=== PATIENT | male | born 1935 | race African-American/Black ===

== ENCOUNTER 2018-02-10 03:52 | Emergency (ER) | payer OTHER ==
[~2018-02-10] VITALS: Ht 167.6 cm; Wt 68.0 kg
[2018-02-10] MEDS ORDERED: ELIQUIS5 MG (04:22)
[2018-02-10] MEDS ORDERED: CARVEDILOL3.125 MG (04:22)
[2018-02-10] MEDS ORDERED: QUINAPRIL HCL20 MG (04:23)
[2018-02-10] MEDS ORDERED: NAMENDA XR7 MG (04:23)
[2018-02-10] MEDS ORDERED: SIMVASTATIN20 MG (04:24)
[2018-02-10] MEDS ORDERED: TAMS0.4C (04:24)
[2018-02-10] MEDS ORDERED: PROFERRIN-FORT1 EACH (04:25)
[2018-02-10] MEDS ORDERED: FINASTERIDE5 MG (04:25)
[2018-02-10] MEDS ORDERED: PNEU16DI2 (04:26)
[2018-02-10] MEDS ORDERED: RIVASTIGMINE6 MG (04:26)
[2018-02-10] MEDS ORDERED: PEPCID40 MG PO (07:19)
[2018-02-10] MEDS ORDERED: ZOFRAN ODT4 MG PO (07:19)
== END 2018-02-10 07:38 | disposition home or self-care (01) ==
LOC: ER 03:52
DX: R42 Dizziness and giddiness (principal)

== ENCOUNTER 2018-03-09 06:43 | Emergency (ER) | payer OTHER ==
[~2018-03-09] VITALS: Ht 162.6 cm; Wt 65.8 kg
[~2018-03-09 06:43] MED LIST: CARVEDILOL3.125 MG; ELIQUIS5 MG; FINASTERIDE5 MG; NAMENDA XR7 MG; PEPCID40 MG PO; PNEU16DI2; PROFERRIN-FORT1 EACH; QUINAPRIL HCL20 MG; RIVASTIGMINE6 MG; SIMVASTATIN20 MG; TAMS0.4C; ZOFRAN ODT4 MG PO
== END 2018-03-09 20:37 | disposition home or self-care (01) ==
LOC: ER 06:43
DX: K57.90 Diverticulosis of intestine, part unspecified, without perforation or abscess without bleeding (principal); N20.0 Calculus of kidney

== ENCOUNTER 2018-05-12 05:36 | Inpatient (IN) | payer OTHER ==
[~2018-05-12] VITALS: Ht 165.1 cm; Wt 63.5 kg
[2018-05-12] MEDS ORDERED: PNEU16DI2 (05:58)
[2018-05-12] MEDS ORDERED: NAMENDA XR14 MG (05:58)
--- NOTE | 2018-05-12 05:58 | NUR ---
SE RECIBE PTE ALERTA Y ORIENTADA POR SOFIA. PTE REFIERE PRESENTAR DOLOR EN AREA DEL HIPOGASTRIO DESDE LA MADRUGADA.
--- NOTE | 2018-05-12 06:49 | NUR ---
SE RECIBE MASCULINO ALERTA Y ORIENTADO POR SOFIA ESFERAS, EN ANGELICA. SE DOMINIQUE MUESTRAS DE LABORATORIO ORDENADAS. SE CANALIZA CON AREA DE VENOPUNCION TA DE EDEMA O ENROJECIMIENTO. SE ADMINISTRAN MEDICAMENTOS ORDENADOS. SE MANTIENE EN OBSERVACION POR CAMBIOS.
[2018-07-05] MEDS ORDERED: XOPENEX0.63 MG/3 IH (11:45)
[2018-07-05] MEDS ORDERED: ELIQUIS2.5 MG PO (11:46)
[2018-07-05] MEDS ORDERED: SIMVASTATIN20 MG PO (11:47)
[2018-07-05] MEDS ORDERED: RISPERIDONE0.5 MG PO (11:47)
[2018-07-05] MEDS ORDERED: PANTOPRAZOLE SO40 MG PO (11:48)
[2018-07-05] MEDS ORDERED: FUROSEMIDE20 MG PO (11:48)
[2018-07-05] MEDS ORDERED: ARTIFICIAL TEAR15 M8 TOP (11:48)
[2018-07-05] MEDS ORDERED: DOCUSATE SODIU100 MG PO (11:49)
[2018-07-05] MEDS ORDERED: FAMOTIDINE20 MG PO (11:49)
[2018-07-05] MEDS ORDERED: PROSCAR5 MG PO (11:50)
[2018-07-05] MEDS ORDERED: POM (MEDICAMENTO EN PO (11:52)
[2018-07-05] MEDS ORDERED: Coreg 6.25MG TABLET PO (11:52)
[2018-07-05] MEDS ORDERED: Intestinex CAP PO (11:52)
== END 2018-07-05 14:38 | DRG 391 ==
LOC: ER 05:36 → MEDI 17:23 → MEDJ 06-15 20:47
PROVIDERS: ADMIT Internal Medicine
PROC: BW21ZZZ Computerized Tomography (CT Scan) of Abdomen and Pelvis (ICD-10-PCS; 2018-05-12)
PROC: B246ZZZ Ultrasonography of Right and Left Heart (ICD-10-PCS; 2018-05-12)
PROC: BW21ZZZ Computerized Tomography (CT Scan) of Abdomen and Pelvis (ICD-10-PCS; 2018-05-19)
PROC: BW28ZZZ Computerized Tomography (CT Scan) of Head (ICD-10-PCS; 2018-05-19)
PROC: 0W9F30Z Drainage of Abdominal Wall with Drainage Device, Percutaneous Approach (ICD-10-PCS; principal; 2018-05-20)
PROC: BW21ZZZ Computerized Tomography (CT Scan) of Abdomen and Pelvis (ICD-10-PCS; 2018-05-27)
PROC: 05H533Z Insertion of Infusion Device into Right Subclavian Vein, Percutaneous Approach (ICD-10-PCS; 2018-06-02)
PROC: 3E0F7GC Introduction of Other Therapeutic Substance into Respiratory Tract, Via Natural or Artificial Opening (ICD-10-PCS; 2018-06-03)
PROC: 4A12X4Z Monitoring of Cardiac Electrical Activity, External Approach (ICD-10-PCS; 2018-06-03)
PROC: 4A033R1 Measurement of Arterial Saturation, Peripheral, Percutaneous Approach (ICD-10-PCS; 2018-06-03)
PROC: BB24ZZZ Computerized Tomography (CT Scan) of Bilateral Lungs (ICD-10-PCS; 2018-06-03)
PROC: BW21ZZZ Computerized Tomography (CT Scan) of Abdomen and Pelvis (ICD-10-PCS; 2018-06-06)
PROC: B246ZZZ Ultrasonography of Right and Left Heart (ICD-10-PCS; 2018-06-07)
PROC: 0W9F30Z Drainage of Abdominal Wall with Drainage Device, Percutaneous Approach (ICD-10-PCS; 2018-06-12)
PROC: 8E0ZXY6 Isolation (ICD-10-PCS; 2018-06-15)
PROC: BW21ZZZ Computerized Tomography (CT Scan) of Abdomen and Pelvis (ICD-10-PCS; 2018-06-25)
PROC: BW21Y0Z Computerized Tomography (CT Scan) of Abdomen and Pelvis using Other Contrast, Unenhanced and Enhanced (ICD-10-PCS; 2018-06-25)
DX: K57.20 Diverticulitis of large intestine with perforation and abscess without bleeding (principal); I50.21 Acute systolic (congestive) heart failure; J90 Pleural effusion, not elsewhere classified; D68.8 Other specified coagulation defects; L89.322 Pressure ulcer of left buttock, stage 2; I11.0 Hypertensive heart disease with heart failure; N40.1 Benign prostatic hyperplasia with lower urinary tract symptoms; I48.0 Paroxysmal atrial fibrillation; Z95.0 Presence of cardiac pacemaker; I25.10 Atherosclerotic heart disease of native coronary artery without angina pectoris; R33.8 Other retention of urine; I95.89 Other hypotension; B96.29 Other Escherichia coli [E. coli] as the cause of diseases classified elsewhere

== ENCOUNTER 2018-07-16 18:25 | Emergency (ER) | payer OTHER ==
[~2018-07-16] VITALS: Ht 167.6 cm; Wt 59.9 kg
[~2018-07-16 18:25] MED LIST changes: +ARTIFICIAL TEAR15 M8 TOP; +Coreg 6.25MG TABLET PO; +DOCUSATE SODIU100 MG PO; +ELIQUIS2.5 MG PO; +FAMOTIDINE20 MG PO; +FUROSEMIDE20 MG PO; +Intestinex CAP PO; +NAMENDA XR14 MG; +PANTOPRAZOLE SO40 MG PO; +POM (MEDICAMENTO EN PO; +PROSCAR5 MG PO; +RISPERIDONE0.5 MG PO; +SIMVASTATIN20 MG PO; +XOPENEX0.63 MG/3 IH
[2018-07-16] MEDS ORDERED: TAMS0.4C (18:45)
== END 2018-07-16 22:19 | disposition home or self-care (01) ==
LOC: ER 18:25
DX: T85.598A Other mechanical complication of other gastrointestinal prosthetic devices, implants and grafts, initial encounter (principal); R10.32 Left lower quadrant pain

== ENCOUNTER 2018-07-20 08:05 | Inpatient (IN) | payer OTHER ==
[~2018-07-20] VITALS: Ht 167.6 cm; Wt 70.8 kg
[2018-07-21] MEDS ORDERED: INTESTINEX680 M1 PO (08:04)
[2018-07-21] MEDS ORDERED: CARVEDILOL6.25 MG PO (08:22)
== END 2018-07-24 22:21 | DRG 392 ==
LOC: ER 08:05 → SEC-K 10:58 → MEDJ 10:58 → SURG 07-22 13:09
PROVIDERS: ADMIT Internal Medicine
PROC: 0H97X0Z Drainage of Abdomen Skin with Drainage Device, External Approach (ICD-10-PCS; principal; 2018-07-21)
DX: K31.6 Fistula of stomach and duodenum (principal); T81.83XA Persistent postprocedural fistula, initial encounter; K57.20 Diverticulitis of large intestine with perforation and abscess without bleeding; J90 Pleural effusion, not elsewhere classified; L02.211 Cutaneous abscess of abdominal wall; N40.0 Benign prostatic hyperplasia without lower urinary tract symptoms; Z95.0 Presence of cardiac pacemaker; I48.2 Chronic atrial fibrillation; Z79.01 Long term (current) use of anticoagulants; I25.10 Atherosclerotic heart disease of native coronary artery without angina pectoris; B96.29 Other Escherichia coli [E. coli] as the cause of diseases classified elsewhere

== ENCOUNTER 2018-08-05 19:27 | Emergency (ER) | payer OTHER ==
[~2018-08-05] VITALS: Ht 172.7 cm; Wt 61.2 kg
[~2018-08-05 19:27] MED LIST changes: +CARVEDILOL6.25 MG PO; +INTESTINEX680 M1 PO
[2018-08-06] MEDS ORDERED: CEFDINIR300 MG PO (08:18)
[2018-08-06] MEDS ORDERED: SYMBICORT 80/10.2 GM IH (08:18)
[2018-08-06] MEDS ORDERED: MUCINEX DM ER1 EAC1 PO (08:18)
[2018-08-06] MEDS ORDERED: ZITHROMAX500 MG PO (08:18)
== END 2018-08-06 08:47 | disposition home or self-care (01) ==
LOC: ER 19:27
DX: T85.890A Other specified complication of nervous system prosthetic devices, implants and grafts, initial encounter (principal); J18.1 Lobar pneumonia, unspecified organism

== ENCOUNTER 2019-10-03 13:11 | Emergency (ER) | payer OTHER ==
[~2019-10-03] VITALS: Ht 165.1 cm; Wt 62.6 kg
[~2019-10-03 13:11] MED LIST changes: +CEFDINIR300 MG PO; +MUCINEX DM ER1 EAC1 PO; +SYMBICORT 80/10.2 GM IH; +ZITHROMAX500 MG PO
[2019-10-03] MEDS ORDERED: NAMENDA XR28 MG (13:30)
[2019-10-03] MEDS ORDERED: TAMS0.4C (13:32)
[2019-10-03] MEDS ORDERED: TOPROL XL25 M1 (13:33)
[2019-10-03] MEDS ORDERED: LASIX20 MG (13:33)
== END 2019-10-03 22:32 | disposition home or self-care (01) ==
LOC: ER 13:11
DX: K57.30 Diverticulosis of large intestine without perforation or abscess without bleeding (principal); N20.0 Calculus of kidney; K40.90 Unilateral inguinal hernia, without obstruction or gangrene, not specified as recurrent; R19.04 Left lower quadrant abdominal swelling, mass and lump

== ENCOUNTER 2021-08-11 07:30 | Outpatient (CLI) | payer OTHER ==
[~2021-08-11 07:30] MED LIST changes: +LASIX20 MG; +NAMENDA XR28 MG; +TOPROL XL25 M1
== END 2021-08-11 07:58 | disposition home or self-care (01) ==
LOC: RAD 07:30
PROVIDERS: ATTEND Internal Medicine Gastroenterology
DX: K30 Functional dyspepsia (principal)

== ENCOUNTER 2021-08-23 16:42 | Emergency (ER) | payer OTHER ==
[~2021-08-23] VITALS: Ht 162.6 cm; Wt 70.8 kg
== END 2021-08-23 18:31 | disposition home or self-care (01) ==
LOC: ER 16:42
DX: S60.222A Contusion of left hand, initial encounter (principal); X58.XXXA Exposure to other specified factors, initial encounter; Y92.89 Other specified places as the place of occurrence of the external cause; G30.9 Alzheimer's disease, unspecified; F02.80 Dementia in other diseases classified elsewhere, unspecified severity, without behavioral disturbance, psychotic disturbance, mood disturbance, and anxiety

== ENCOUNTER 2023-02-12 13:01 | Emergency (ER) | payer OTHER ==
[~2023-02-12] VITALS: Ht 167.6 cm; Wt 68.0 kg
== END 2023-02-12 23:50 | disposition home or self-care (01) ==
LOC: ER 13:01
DX: S09.8XXA Other specified injuries of head, initial encounter (principal); W18.39XA Other fall on same level, initial encounter; Y93.89 Activity, other specified; Y92.018 Other place in single-family (private) house as the place of occurrence of the external cause; S79.812A Other specified injuries of left hip, initial encounter; G30.8 Other Alzheimer's disease; F02.80 Dementia in other diseases classified elsewhere, unspecified severity, without behavioral disturbance, psychotic disturbance, mood disturbance, and anxiety

== ENCOUNTER 2023-03-15 23:20 | Emergency (ER) | payer OTHER ==
[~2023-03-15] VITALS: Ht 165.1 cm; Wt 68.0 kg
[2023-03-16] MEDS ORDERED: CIPRO500 MG PO (07:58)
[2023-03-16] MEDS ORDERED: ZYNCOF 20-400120 ML PO (08:00)
[2023-03-16] MEDS ORDERED: GENTAMICIN SULFA5 ML OP (08:00)
== END 2023-03-16 08:41 ==
LOC: ER 23:20
PROVIDERS: General Practice
DX: R53.81 Other malaise (principal); R31.9 Hematuria, unspecified; Z20.822 Contact with and (suspected) exposure to COVID-19

== ENCOUNTER 2023-05-09 21:30 | Emergency (ER) | payer OTHER ==
[~2023-05-09] VITALS: Ht 175.3 cm; Wt 72.6 kg
[~2023-05-09 21:30] MED LIST changes: +CIPRO500 MG PO; +GENTAMICIN SULFA5 ML OP; +ZYNCOF 20-400120 ML PO
[2023-05-09 23:45] LABS: HEMATOCRIT 37.2 % (39.0-48.0); MEAN CELL VOLUME 93.7 fL (80.0-100.00); MEAN CORPUSCULAR HGB CONC 32.1 g/dl (32.0-36.0); PLATELET COUNT 139 K/uL (150-450); RED BLOOD COUNT 3.97 M/uL (4.00-6.00); RED CELL DISTRIBUTION WIDTH 16.1 % (11.5-14.5)
[2023-05-09 23:46] LABS: MEAN CORPUSCULAR HEMOGLOBIN 30.2 pg (27.00-32.0)
[2023-05-10 00:09] LABS: ALBUMIN 2.9 gm/dL (3.4-5.0); BILIRUBIN TOTAL 0.43 mg/dL (0.3-1.2); CALCIUM 8.7 mg/dL (8.5-10.1); CREATININE SERUM 1.34 mg/dL (0.70-1.30); GFR 50.31; GLOBULINA 3.1 G/DL (2.4-3.5); POTASSIUM 3.72 mEq/L (3.5-5.1)
== END 2023-05-10 04:08 | disposition home or self-care (01) ==
LOC: ER 21:30
PROVIDERS: General Practice
DX: R55 Syncope and collapse (principal); Z20.822 Contact with and (suspected) exposure to COVID-19; G30.8 Other Alzheimer's disease; F02.80 Dementia in other diseases classified elsewhere, unspecified severity, without behavioral disturbance, psychotic disturbance, mood disturbance, and anxiety